=== PATIENT | female | born 1990 | race Caucasian/White ===

== ENCOUNTER 2025-06-13 21:29 | Emergency (ER) | payer OTHER ==
[~2025-06-13] VITALS: Ht 172.7 cm; Wt 74.0 kg
[2025-06-13 21:33] VITALS: TEMP 99
[2025-06-13] MEDS: METOCLOPRAMIDE HCL 5 MG/ML 2 ML VIAL IVP ONE (22:36)
[2025-06-13] MEDS: SODIUM CHLORIDE 0.9% 1,000 ML IV ONE (22:36)
[2025-06-13 22:47] LABS: PLATELET COUNT (AUTO) 217 K/uL (150-450); RED BLOOD CELL COUNT(AUTO) 4.30 MIL/uL (4.00-5.20); RED CELL DISTRIBUTION WIDTH 17.8 % (11.5-14.5); WHITE BLOOD COUNT (AUTO) 11.9 K/uL (4.5-11.0)
[2025-06-13 22:56] LABS: CALCIUM, TOTAL 8.6 mg/dL (8.8-10.5); CREATININE 0.61 mg/dL (0.60-1.30); GLOMERULAR FILTR. RATE CALC > 60 mL/min (>60); GLUCOSE,RANDOM 78 mg/dL (70-110); SODIUM SERUM 137 mmol/L (136-145); UREA NITROGEN, BLOOD 9 mg/dL (7-18)
[2025-06-13 23:15] VITALS: BP 124/71; PULSE 72; RESP 18; O2SAT 97
[2025-06-13 23:23] LABS: ASPARTATE AMINOTRANSFERASE 23.0 U/L (15-37); HCG,QUANTITATIVE 72836.0 mIU/mL (0-6); TOTAL PROTEIN, SERUM 6.7 g/dL (6.4-8.2)
[2025-06-14] MEDS ORDERED: DOXY1TAB3 PO (00:21)
== END 2025-06-14 00:27 | disposition home or self-care (01) ==
LOC: EMS 21:29
DX: R11.2 Nausea with vomiting, unspecified (principal); R51.9 Headache, unspecified; N89.8 Other specified noninflammatory disorders of vagina
CPT/HCPCS: 99283; 96374; 96361; 80048; 80076; 83690; 84702; 85025; 36415; J2765; J7030